=== PATIENT | male | born 1955 | race Caucasian/White ===

== ENCOUNTER 2022-12-28 09:28 | Outpatient (CLI) | payer BC, SELFPAY | END 2022-12-28 09:29 | disposition home or self-care (01) | PROVIDERS: PCP Family Medicine; Visit Provider Family Medicine | DX: Z00.00 Encounter for general adult medical examination without abnormal findings (principal); I10 Essential (primary) hypertension; E11.9 Type 2 diabetes mellitus without complications; R53.83 Other fatigue; Z12.5 Encounter for screening for malignant neoplasm of prostate | CPT/HCPCS: 80053; 80061; 82043; 82570; 84153; 84443 ==

== ENCOUNTER 2023-01-06 14:18 | Outpatient (CLI) | payer BC, SELFPAY ==
--- NOTE | 2023-01-06 15:00 | CRLHL7_ITS ---
For Patients: As a result of the Century Cures Act, medical imaging exams and procedure reports are released immediately into your electronic medical record. You may view this report before your referring provider. If you have questions, please contact your health care provider. CLINICAL HISTORY: CAROTID BRUIT TECHNIQUE: The carotid circulations and the vertebral arteries in the neck were examined with angeles-scale ultrasound, color-flow and Doppler spectral analysis. Degrees of stenosis were determined using SRU 2002 Consensus Panel Criteria. FINDINGS: Sonographic images demonstrate mild bilateral atherosclerotic plaque formation without suspicious soft tissue mass. There was antegrade blood flow demonstrated within the vertebral arteries and the subclavian arteries demonstrated a normal triphasic waveform. The spectral Doppler tracings of the common carotid, internal and external carotid arteries demonstrate no abnormal turbulence or spectral broadening. There was no significant elevation of peak systolic blood flow which would indicate a hemodynamically-significant stenosis by SRU criteria. The ICA/CCA peak systolic velocity ratio measures 0.7 on the right and 0.8 on the left. Solid and cystic thyroid nodule noted on the left measuring 2.3 cm. IMPRESSION: Less than 50 percent stenosis of the internal carotid arteries bilaterally. 2.3 cm nodule left thyroid lobe which could be followed up in 1 years time. Dictated by Bobby Cadena MD @ 01/08/2023 9:45:17 AM (Electronically Signed)
== END 2023-01-06 14:19 | disposition home or self-care (01) ==
PROVIDERS: PCP Family Medicine; Visit Provider Family Medicine
DX: R01.1 Cardiac murmur, unspecified (principal); I65.23 Occlusion and stenosis of bilateral carotid arteries; E04.1 Nontoxic single thyroid nodule
CPT/HCPCS: 93880

== ENCOUNTER 2023-10-04 10:27 | Outpatient (CLI) | payer BC, SELFPAY | END 2023-10-04 10:28 | disposition home or self-care (01) | PROVIDERS: PCP Family Medicine; Visit Provider Family Medicine | DX: E11.9 Type 2 diabetes mellitus without complications (principal); I10 Essential (primary) hypertension; E04.1 Nontoxic single thyroid nodule | CPT/HCPCS: 80053 ==

== ENCOUNTER 2024-01-19 07:46 | Outpatient (CLI) | payer BC, SELFPAY ==
--- NOTE | 2024-01-19 08:15 | US_ITS ---
Patient: BRIELLE HEALY Facility:?[facility] Patient ID:?[id number] Site Patient [id number]:?[id number]. Site :?[id number] Study:?US-Thyroid Bilateral -01/19/2024 8:22:24 AM Ordering Physician:CHARLEY BERNARD Final Report: INDICATION: Thyroid nodules seen on previous carotid ultrasound TECHNIQUE: Conventional two-dimensional angeles-scale ultrasound of the thyroid gland. COMPARISON: None. FINDINGS: A multinodular goiter is demonstrated. The right lobe measures 6.1 x 1.8 x 2.3 cm and the left lobe 5.3 x 1.9 x 2.4 cm. The isthmus measures 4 mm in thickness. In the mid right thyroid lobe is a 2.1 x 1.6 x 1.1 cm TR3 nodule, and in the inferior right lobe is a 1.9 x 1.6 x 1.2 cm TR3 nodule. In the mid left thyroid lobe is a 2.0 x 1.6 x 1.6 cm TR2 nodule, and in the inferior left lobe is a 1.0 x 0.9 x 0.6 cm TR4 nodule. IMPRESSION: Thyroid nodules, as above, none with features meeting ACR criteria for FNA recommendation. ACR TI-RADS: TR1: Benign No FNA TR2: Not Suspicious No FNA TR3: Mildly Suspicious FNA if greater than or equal to 2.5 cm Follow if greater than or equal to 1.5 cm and less than 2.5 cm TR4: Moderately Suspicious FNA if greater than or equal to 1.5 cm Follow if greater than or equal to 1 cm and less than 1.5 cm TR5: Highly Suspicious FNA if greater than or equal to 1 cm Follow if greater than or equal to 0.5 cm and less than 1.0 cm Dictated by Rayshawn Coyle MD @ 01/20/2024 6:59:31 AM Signed by:?Rayshawn Coyle MD @01/20/2024 6:59:31 AM (Electronic Signature)
== END 2024-01-19 07:47 | disposition home or self-care (01) ==
LOC: US 07:47
PROVIDERS: PCP Physician Assistant Medical; Visit Provider Family Medicine
DX: E04.1 Nontoxic single thyroid nodule (principal)
CPT/HCPCS: 76536

== ENCOUNTER 2024-10-22 09:07 | Outpatient (CLI) | payer BC, SELFPAY | END 2024-10-22 09:08 | disposition home or self-care (01) | LOC: NFLDREF 10-25 06:29 | PROVIDERS: PCP Physician Assistant Medical; Referring Provider Physician Assistant Medical; Visit Provider Physician Assistant Medical | DX: Z12.5 Encounter for screening for malignant neoplasm of prostate (principal); E04.1 Nontoxic single thyroid nodule; E11.9 Type 2 diabetes mellitus without complications; I10 Essential (primary) hypertension | CPT/HCPCS: 80053; 80061; 82043; 82570; 84443; G0103 ==

== ENCOUNTER 2025-02-06 13:38 | Outpatient (CLI) | payer BC, SELFPAY | END 2025-02-06 13:39 | disposition home or self-care (01) | LOC: NFLDREF 02-09 18:11 | PROVIDERS: PCP Physician Assistant Medical; Referring Provider Physician Assistant Medical; Visit Provider Physician Assistant Medical | DX: R31.9 Hematuria, unspecified (principal) | CPT/HCPCS: 87086 ==